=== PATIENT | male | born 1945 | race Caucasian/White ===

== ENCOUNTER 2018-07-23 19:45 | Inpatient (IN) | payer MEDICARE, OTHER ==
[~2018-07-23] VITALS: Ht 177.8 cm; Wt 177.4 kg
[2018-07-23 20:25] VITALS: BP 103/76
--- NOTE | 2018-07-23 21:07 | Emergency Room Report ---
History of Present Illness General Chief Complaint: Syncope Source: Patient Present Illness HPI 72-year-old male with a history of chronic back pain, DM, presents with syncopal episodes, 2 days ago and another today, reports he is having chronic back pain no change in that, no fevers, no numbness, tingling, weakness, does not think he hurt himself when he syncopized 2 days ago, and EMS was there when he stood up and syncopized today. He denies neck pain, headache or any other pain complaints or injuries. Allergies: Coded Allergies: No Known Allergies (Unverified , 07/23/18) Patient History Past Medical History: see triage record Reviewed Nursing Documentation: PMH: Agreed; PSxH: Agreed Nursing Documentation-PMH Past Medical History: No History, Except For Hx Hypertension: Yes Hx Diabetes: Yes Hx Dialysis: No - chronic back pain Review of Systems All Other Systems: negative except mentioned in HPI Physical Exam Vital Signs Date Time Temp Pulse Resp B/P (MAP) Pulse Ox O2 Delivery O2 Flow Rate FiO2 07/23/18 19:36 98.4 104 16 103/76 98 Room Air Sp02 EP Interpretation: reviewed, normal General Appearance: no apparent distress, alert, non-toxic Head: normocephalic Eyes: bilateral eye normal inspection, bilateral eye PERRL, bilateral eye EOMI ENT: normal ENT inspection, hearing grossly normal, normal pharynx, no angioedema, normal voice, moist mucus membranes Neck: normal inspection, full range of motion, supple, thyroid normal, no meningismus, no bony tend, supple/symm/no masses Respiratory: chest non-tender, lungs clear, normal breath sounds, chest symmetrical, palpation of chest normal Cardiovascular #1: normal peripheral pulses, regular rate, rhythm, no gallop, no JVD, no murmur, no rub Cardiovascular #2: 2+ radial (R), 2+ radial (L) Gastrointestinal: normal inspection, non tender, soft, no mass, no guarding, no rebound Rectal: deferred Genitourinary: normal inspection, no CVA tenderness Musculoskeletal: back normal, gait/station normal, normal range of motion, non- tender, no calf tenderness Neurologic: alert, responsive, carbide tool maker III-XII nml as tested, motor strength/tone normal, sensory intact, speech normal Psychiatric: judgement/insight normal, memory normal, mood/affect normal Skin: normal color, no rash, warm/dry, normal turgor Lymphatic: no adenopathy Medical Decision Making Diagnostic Impression: Primary Impression: Syncope Additional Impression: Pneumonia ER Course Chest x-ray is concerning for pneumonia, patient is episodes, normal vital signs here, no clinical symptomatology for DVT or PE, will admit on telemetry and give antibiotics for pneumonia. Troponin negative, otherwise labs are all unremarkable, patient stable for telemetry, Dr. Daniel to admit. Rhythm Strip Diag. Results Rhythm Strip Time: 21:07 EP Interpretation: yes Rate: 98 Rhythm: NSR, no PVC's, no ectopy Chest X-Ray Diagnostic Results Chest X-Ray Diagnostic Results : Chest X-Ray Ordered: Yes # of Views/Limited/Complete: 1 View Indication: Other EP Interpretation: Yes Interpretation: no effusion, no pneumothorax, no acute cardiopulmonary disease, other - perihilar opacities Impression: Other Electronically Signed by: Zbigniew Marquez MD Last Vital Signs Date Time Temp Pulse Resp B/P (MAP) Pulse Ox O2 Delivery O2 Flow Rate FiO2 07/23/18 20:25 98.4 63 16 103/76 98 Room Air ZBIGNIEW MARQUEZ M.D Jul 23, 2018 21:07
[2018-07-23 21:11] LABS: BASOPHILS % (AUTO) 0.6 % (0.0-2.0); EOSINOPHILS % (AUTO) 0.3 % (0.0-3.0); HEMATOCRIT 40.8 % (42.0-52.0); HEMOGLOBIN 13.5 G/DL (14.2-18.0); LYMPHOCYTES % (AUTO) 26.3 % (20.0-45.0); MEAN CORPUSCULAR VOLUME 89 FL (80-99); MONOCYTES % (AUTO) 8.1 % (1.0-10.0); NEUTROPHILS % (AUTO) 64.7 % (45.0-75.0); PLATELET COUNT 244 K/UL (150-450); RED BLOOD COUNT 4.58 M/UL (4.70-6.10); RED CELL DISTRIBUTION WIDTH 11.9 % (11.6-14.8)
[2018-07-23] MEDS ORDERED: oxyCODONE HCL/Acetaminophen 5/325mg ORAL ONE (21:15)
[2018-07-23 21:17] LABS: ANION GAP 13 mmol/L (5-15); BLOOD UREA NITROGEN 27 mg/dL (7-18); CALCIUM 9.5 MG/DL (8.5-10.1); CARBON DIOXIDE 26 MMOL/L (21-32); CHLORIDE 96 MMOL/L (98-107); POTASSIUM 4.6 MMOL/L (3.5-5.1); SODIUM 134 MMOL/L (136-145)
[2018-07-23 21:28] LABS: ALANINE AMINOTRANSFERASE 24 U/L (12-78); ALBUMIN 3.6 G/DL (3.4-5.0); ALBUMIN/GLOBULIN RATIO 0.7 (1.0-2.7); ALKALINE PHOSPHATASE 93 U/L (46-116); ASPARTATE AMINO TRANSFERASE 16 U/L (15-37); BILIRUBIN,TOTAL 0.5 MG/DL (0.2-1.0)
[2018-07-23] MEDS ORDERED: Morphine Sulfate 4mg/ml Inj (IV/IM USE ONLY) IVP ONE (21:30)
[2018-07-23 22:20] VITALS: BP 109/73
[2018-07-23] MEDS ORDERED: METFORMIN500 MG/5 M PO ×2 (23:24→23:33)
[2018-07-23] MEDS ORDERED: VICTOZA 2-0.6 MG/0.1 SUBQ (23:32)
[2018-07-23] MEDS ORDERED: LANTUS SOL100 UNIT/1 SUBQ (23:32)
[2018-07-23] MEDS ORDERED: ASPIR 8181 MG ORAL (23:32)
[2018-07-23] MEDS ORDERED: OXYCODONE H5 MG/5 ML ORAL (23:32)
[2018-07-24 00:10] VITALS: BP 112/71
[2018-07-24 00:50] VITALS: BP 115/69
[2018-07-24] MEDS ORDERED: oxyCODONE HCL/Acetaminophen 5/325mg ORAL PRN (02:00)
[2018-07-24] MEDS ORDERED: NovoLOG Insulin Flexpen SUBQ SCH ×2 (06:30)
[2018-07-24 07:07] LABS: EOSINOPHILS % (AUTO) 2.9 % (0.0-3.0); HEMATOCRIT 38.1 % (42.0-52.0); HEMOGLOBIN 12.7 G/DL (14.2-18.0); LYMPHOCYTES % (AUTO) 41.6 % (20.0-45.0); MEAN CORPUSCULAR VOLUME 88 FL (80-99); MONOCYTES % (AUTO) 11.9 % (1.0-10.0); NEUTROPHILS % (AUTO) 42.7 % (45.0-75.0); PLATELET COUNT 229 K/UL (150-450); RED BLOOD COUNT 4.31 M/UL (4.70-6.10); WHITE BLOOD COUNT 9.1 K/UL (4.8-10.8)
[2018-07-24 08:00] VITALS: BP 98/56
--- NOTE | 2018-07-24 09:51 | Diagnostic Imaging Report ---
Indication: Chest pain Technique: One view of the chest Comparison: Findings: Lungs and pleural spaces are clear. Heart size is normal. There is central bronchial wall thickening Impression: No acute process Central bronchial wall thickening, probably reflects senescent changes or chronic bronchitis This agrees with the preliminary interpretation provided overnight by [facility].
--- NOTE | 2018-07-24 15:54 | Cardiology Report ---
APPROVED REPORT EKG Measurement Heart [id number] Normal sinus rhythm with sinus arrhythmia Nonspecific ST abnormality Abnormal ECG
[2018-07-24] MEDS ORDERED: Heparin 5000 units/ml inj SUBQ SCH (21:00)
--- NOTE | 2018-07-25 02:00 | History and Physical Report ---
DATE OF ADMISSION: 07/23/2018 REASON FOR ADMISSION: Syncope. HISTORY OF PRESENT ILLNESS: This is a 72-year-old male. He has chronic back pain and diabetes mellitus. He had two syncopal episodes. First episode was two days ago, another episode was last night. The patient apparently stood up and passed out while paramedics were present. He had no antecedent symptoms of chest pain, palpitations, or shortness of breath. There was no subsequent sequelae or witnessed seizure activity. PAST MEDICAL HISTORY: Includes hypertension and type 2 diabetes mellitus as well as chronic back pain due to degenerative disk disease. ALLERGIES: None. MEDICATIONS: Reviewed. SOCIAL HISTORY: Negative for smoking, alcohol, or substance abuse. REVIEW OF SYSTEMS: Otherwise unremarkable. PHYSICAL EXAMINATION: VITAL SIGNS: Blood pressure 103/76, pulse 104, and respirations 16. Afebrile. HEENT: Conjunctivae pink. Oropharynx clear. NECK: Supple. No bruits. Carotid upstrokes without delay. LUNGS: Clear. CARDIAC: Regular rhythm and rate. Normal S1, S2 with no murmur. ABDOMEN: Soft, nontender. EXTREMITIES: No edema. NEUROLOGIC: Nonfocal. DIAGNOSTIC DATA: Chest x-ray revealed bronchial wall thickening but no acute process. EKG, sinus arrhythmia with nonspecific ST-T changes. LABORATORY DATA: White count 10, hemoglobin 13.5. Troponin 0.009. BUN 27, creatinine 2, sodium 134, potassium 4.6, bicarbonate 26. Pro-natriuretic peptide 168. IMPRESSION: 1. Recurring syncope. 2. No clinical signs of acute pneumonia. 3. Mild hyponatremia, hypochloremia. 4. Acute versus chronic kidney injury. 5. Diabetes mellitus with hyperglycemia. PLAN: 1. Saline hydration. 2. Cardiac monitoring. 3. Check orthostatics. 4. Serial troponins. 5. Respiratory hygiene. 6. Optimize cardiovascular regimen. 7. Insulin coverage by sliding scale. Jorge Daniel M.D. DR: GILDA JOB#: [id number] CC:
--- NOTE | 2018-07-26 07:59 | Discharge Summary ---
Discharge Summary Discharge Summary _ DATE OF ADMISSION: 07/23/2018 DATE OF DISCHARGE: 07/24/2018 Patient signed AGAINST MEDICAL ADVICE REASON FOR ADMISSION: 72 years old male with past medical history of hypertension, type 2 diabetes mellitus, chronic back pain secondary to degenerative disc disease, presented after two syncopal episodes. First episode happened two days ago and another one happened the night prior to presentation to the emergency department. Patient denied chest pain ,palpitations or shortness of breath prior to episodes. Upon evaluation in emergency department patient was slightly tachycardic, blood pressure was on the low side 103/76. Troponin was negative. EKG revealed normal sinus rhythm, no acute ischemic changes. Pro BNP 168. No leukocytosis ,hemoglobin 13.5. BUN 27 , creatinine 2.0. Sodium 134, chloride 96. Glucose 217 Chest x-ray revealed bronchial wall thickening, but no acute process. Patient admitted with diagnoses of recurrent syncope, acute versus chronic kidney injury, diabetes mellitus with hyperglycemia, hyponatremia and hypochloremia. HOSPITAL COURSE: Patient admitted to telemetry floor. Patient started on IV hydration with normal saline. Telemetry revealed no evidence of arrhythmia and no ischemic changes. Repeated troponin was negative. Orthostatic vital signs were ordered. Supplemental oxygen provided as needed to keep pulse oximetry above 92%. No clinical signs of acute pneumonia. Pulse oximetry was stable on room air. Blood sugar was managed with sliding scale of insulin. Hemoglobin A1c 7.9. DVT prophylaxis provided. Patient decided to leave against medical advise. The risks and consequences of signing AGAINST MEDICAL ADVICE were discussed with patient in detail. Patient verbalized understanding, nevertheless signed AMA form and left. FINAL DIAGNOSES: Recurrent syncope Mild hyponatremia and hypochloremia Acute versus chronic kidney injury Diabetes mellitus with hyperglycemia I have been assigned to dictate discharge summary for this account. I was not involved in the patient's management. Mary Wen NP Jul 26, 2018 07:59
== END 2018-07-24 09:37 | disposition left against medical advice (07) | DRG 638 ==
LOC: EDBD 19:45 → EMR 20:40 → 2E 21:47 → EDBEDREQ 23:16
DX: E11.65 Type 2 diabetes mellitus with hyperglycemia (principal); N17.9 Acute kidney failure, unspecified; E87.1 Hypo-osmolality and hyponatremia; R55 Syncope and collapse; I10 Essential (primary) hypertension; G89.29 Other chronic pain; M54.9 Dorsalgia, unspecified; I12.9 Hypertensive chronic kidney disease with stage 1 through stage 4 chronic kidney disease, or unspecified chronic kidney disease; N18.9 Chronic kidney disease, unspecified; E87.8 Other disorders of electrolyte and fluid balance, not elsewhere classified
CPT/HCPCS: 36415; 71045; 80053; 82607; 82746; 82962; 83036; 83880; 84443; 84484; 85025; 93005; 96374; 99285; J1815